=== PATIENT | female | born 1935 | race Caucasian/White ===

== ENCOUNTER 2016-09-19 11:41 | Day surgery (SDC) | payer MEDICARE ==
[2016-09-14 11:36] LABS: BASOPHILS 0.8 %; BASOPHILS ABSOLUTE 0.04 10/3/uL (0.0-0.16); EOSINOPHILS 2.8 %; EOSINOPHILS ABSOLUTE 0.15 10/3/uL (0.0-0.53); HEMATOCRIT 38.5 % (36.0-48.0); HEMOGLOBIN 12.7 g/dL (12.0-16.0); IMMATURE GRANULOCYTES 0.2 %; IMMATURE GRANULOCYTES ABSOLUTE 0.01 10/3/uL (0.0-0.11); LYMPHOCYTES ABSOLUTE 1.21 10/3/uL (0.67-4.30); MEAN CORPUSCULAR HEMOGLOB 29.2 pg (26.0-34.0); MEAN CORPUSCULAR VOLUME 88.5 fL (80-100); MEAN PLATELET VOLUME 9.8 fL (9.2-13.0); MONOCYTES 9.7 %; MONOCYTES ABSOLUTE 0.51 10/3/uL (0.21-1.20); NEUTROPHILS 63.5 %; NEUTROPHILS ABSOLUTE 3.35 10/3/uL (2.02-8.40); PLATELET COUNT 194 10/3/uL (150-400); RBC DISTRIBUTION WIDTH 14.1 % (12.0-16.0); RED CELL COUNT 4.35 10/6/uL (4.0-5.6); WHITE BLOOD CELLS 5.3 10/3/uL (4.5-10.5)
[2016-09-14 11:39] LABS: MANUAL DIFF NO %
[2016-09-14 11:54] LABS: A/G RATIO 1.2 (0.7-1.9); ALBUMIN 3.8 G/DL (3.5-5.0); ALKALINE PHOSPHATASE 87 U/L (45-117); BUN (BLOOD UREA NITROGEN) 13 MG/DL (6-23); CALCIUM, SERUM 9.1 MG/DL (8.5-10.4); CHLORIDE, SERUM 104 MMOL/L (96-112); CO2 (CARBON DIOXIDE) 32 MMOL/L (24-34); CREATININE 0.68 MG/DL (0.55-1.02); GFR AFRICAN AMERICAN 96 ML/MIN (>=60); GFR NON AFRICAN AMERICAN 83 ML/MIN (>=60); GLOBULIN 3.1 G/DL (2.5-4.1); GLUCOSE, SERUM 112 MG/DL (60-99); POTASSIUM, SERUM 3.6 MMOL/L (3.5-5.3); SGOT(AST) 17 U/L (5-40); SGPT(ALT) 23 U/L (5-65); SODIUM, SERUM 141 MMOL/L (135-148); TOTAL BILIRUBIN 0.4 MG/DL (0-1.2); TOTAL PROTEIN 6.9 G/DL (6.0-8.5)
--- NOTE | ~2016-09-19 | OP ---
Record Of Operation [facility] [address] [place]. [address] NAME: PARIS EASLEY : 37 STATUS : [facility]#: [id number] AGE: 81 ADM/REG DATE : 09/19/16 MR#: [id number] REPORT SERV DATE: 09/20/16 DICTATED BY: REECE ORDONEZ DATE: 09/19/16 REPORT STATUS : Draft TRANSCRIBED BY: MODL DATE: 09/19/16 DATE OF PROCEDURE: 09/19/2016 SURGEON: Reece Ordonez M.D. TAXI DANCER: Dr. Lynch. ANESTHESIA: Local with intravenous sedation. PREOPERATIVE DIAGNOSIS: Left breast cancer. POSTOPERATIVE DIAGNOSIS: Left breast cancer. PROCEDURE: 1. Ultrasound localization of left breast cancer. 2. Left breast lumpectomy. HISTORY: The patient is an 81-year-old white female who was recently discovered to have a new mass in the left breast upper outer quadrant. This was seen by CT scan, mammography, and ultrasound. Ultrasound-guided core biopsy performed on 09/05/2016 showed a grade 1 invasive ductal cancer. This was ER/OR positive and HER-2/abraham was negative by FISH testing. KI 67 was intermediate at 10-25%. The patient had no evidence of adenopathy. Discussion was undertaken regarding her treatment options. The patient wishes to proceed with breast conserving surgery. It is felt that local resection will be adequate treatment and that she will not likely require radiation therapy. She has no evidence of adenopathy and determination of her aydin status was not felt to affect her therapy. We have therefore decided to proceed with lumpectomy alone. Her significant comorbidities include a thoracic aneurysm, which is being followed expectantly with control of her blood pressure. Her preoperative clinical stage was T1, N0, M0. NARRATIVE SUMMARY: After intravenous sedation, the patient was placed supine with both arms placed on armboards. Ultrasound scanning was performed of the left breast upper outer aspect. Seen at the 2 o'clock position, 10 cm from the nipple, is a slightly irregular hypoechoic density containing the previously placed marking clip. This was photographed. The ultrasound probe was placed in two perpendicular orientations and skin overlying the lesion marked. The left breast and axillary areas were then prepped and draped in the usual fashion. There were no palpable abnormalities within the breast. Time-out was called to verify the identity of the patient, review allergies, verified appropriate administration of antibiotics, and verify the appropriate procedure as being left breast lumpectomy. Record Of Operation [facility] [place]. [address] NAME: PARIS EASLEY : 37 STATUS : [facility] PAT#: [id number] AGE: 81 ADM/REG DATE : 09/19/16 MR#: [id number] REPORT SERV DATE: 09/20/16 DICTATED BY: REECE ORDONEZ DATE: 09/19/16 REPORT STATUS : Draft TRANSCRIBED BY: RAFIA DATE: 09/19/16 0.5% Marcaine was used to infiltrate the skin and subcutaneous tissue overlying the area of planned resection. A curvilinear incision was made based on previously placed skin markings. A column of tissue was sharply excised down to the chest wall. The specimen was marked for orientation purposes with two sutures placed and handed off fresh to the pathologist. The pathologist inked margins and serially sectioned the specimen. The cancer in question was readily visible within the specimen and within the lesion was noted the previous biopsy cavity and the marking clip. The tumor seemed to closely approach the inferior medial margin of the resection. For this reason, a further margin was taken in the inferior medial direction with the new margin marked. This was sent as a separate specimen for permanent section only labeled re-excision left inferomedial margin. The wound was thoroughly irrigated and aspirated free of fluid. Bleeding was controlled using cautery. The area was further infiltrated with 0.5% Marcaine. Closure was accomplished in layers using 3-0 Vicryl with interrupted subcutaneous suture and 4-0 Monocryl running subcuticular closure for skin. Dressings were applied, and the patient was transported to the recovery area in stable condition. Estimated blood loss was minimal. Sponge, instrument, and needle counts were all correct. There were no complications noted. DESIREE/RAFIA Reece Ordonez M.D. / [id number] CC: Ronnell Vallejo M.D.
[~2016-09-19 11:41] MED LIST: 8 HOUR650 MG PO; DIOVAN HCT320 MG/25 PO; NORV5 PO; SYN88 PO; ZOL50 PO
== END 2016-09-19 15:45 | disposition home or self-care (01) ==
LOC: SDC 11:41
PROVIDERS: Surgery
PROC: 0HBU0ZZ Excision of Left Breast, Open Approach (ICD-10-PCS; principal; 2016-09-19 13:15)
DX: C50.412 Malignant neoplasm of upper-outer quadrant of left female breast (principal); I10 Essential (primary) hypertension; E03.9 Hypothyroidism, unspecified; Z90.710 Acquired absence of both cervix and uterus; Z98.41 Cataract extraction status, right eye; Z98.42 Cataract extraction status, left eye; Z79.899 Other long term (current) drug therapy; Z17.0 Estrogen receptor positive status [ER+]
CPT/HCPCS: 71020; 80053; 85025; 88305; 88307; 93005; J0690; J2405; J3010